=== PATIENT | male | born 1955 | race Two or more races ===

== ENCOUNTER 2020-01-20 18:18 | Emergency (ER) | payer OTHER ==
[~2020-01-20] VITALS: Ht 182.9 cm; Wt 91.2 kg
[2020-01-20] MEDS ORDERED: CANDESARTAN CILE8 M1 (18:31)
[2020-01-20] MEDS ORDERED: ZETIA10 MG (18:32)
[2020-01-21] MEDS ORDERED: GALZIN50 MG PO (07:36)
[2020-01-21] MEDS ORDERED: MAGNESIUM500 MG PO (07:36)
[2020-01-21] MEDS ORDERED: DERMACINRX5000 UNIT PO (07:36)
[2020-01-21] MEDS ORDERED: ZITHROMAX500 MG PO (07:36)
[2020-01-21] MEDS ORDERED: VITAMIN C500 M6 PO (07:36)
[2020-01-21] MEDS ORDERED: MELATONIN10 M2 PO (07:36)
== END 2020-01-21 08:40 | disposition home or self-care (01) ==
LOC: ER 18:18
DX: U07.1 COVID-19 (principal); J12.89 Other viral pneumonia

== ENCOUNTER 2024-03-18 15:57 | Emergency (ER) | payer OTHER ==
[~2024-03-18] VITALS: Ht 182.9 cm; Wt 93.0 kg
[~2024-03-18 15:57] MED LIST: CANDESARTAN CILE8 M1; DERMACINRX5000 UNIT PO; GALZIN50 MG PO; MAGNESIUM500 MG PO; MELATONIN10 M2 PO; VITAMIN C500 M6 PO; ZETIA10 MG; ZITHROMAX500 MG PO
[2024-03-18] MEDS ORDERED: PRAVASTATIN SOD80 MG PO (16:55)
[2024-03-18] MEDS ORDERED: EZETIMIBE10 MG PO (16:55)
[2024-03-18] MEDS ORDERED: AVAPRO75 MG (16:56)
[2024-03-18] MEDS ORDERED: CEFTRIAXONE SODIUM 1,000 MG VIAL IM STA (18:57)
[2024-03-18 19:44] LABS: HEMOGLOBIN 13.3 g/dL (13-16.00); MEAN CELL VOLUME 89.9 fL (80.0-100.00); MEAN CORPUSCULAR HEMOGLOBIN 30.7 pg (27.00-32.0); MEAN CORPUSCULAR HGB CONC 34.1 g/dl (32.0-36.0); PLATELET COUNT 291 K/uL (150-450); RED BLOOD COUNT 4.33 M/uL (4.00-6.00); RED CELL DISTRIBUTION WIDTH 14.6 % (11.5-14.5)
== END 2024-03-18 20:16 | disposition home or self-care (01) ==
LOC: ER 15:59
PROVIDERS: General Practice
DX: L08.9 Local infection of the skin and subcutaneous tissue, unspecified (principal); T14.8XXA Other injury of unspecified body region, initial encounter
CPT/HCPCS: 36415; 96372; 99282; J0696